=== PATIENT | male | born 1970 | race Caucasian/White ===

== ENCOUNTER 2018-07-09 03:32 | Inpatient (IN) ==
[2018-07-09] MEDS ORDERED: Ipratropium/Albuterol Neb 3 ML IH ONE (03:46)
[2018-07-09] MEDS ORDERED: methylPREDNISolone 125 MG/2 ML VIAL IVP ONE (03:46)
--- NOTE | 2018-07-09 03:53 | Emergency Department Note ---
Disposition Clinical Impression: Acute exacerbation of chronic obstructive airways disease Disposition: Admitted As Inpatient Condition: Fair Time of Disposition: 05:29 General Adult HPI - General Chief complaint: ED Shortness of Breath/Dyspnea Stated complaint: crissy Time Seen by Provider: 07/09/18 03:35 Source: patient Mode of arrival: EMS Limitations: no limitations Nursing Notes Reviewed: Yes Vital Signs Reviewed: Yes - History of Present Illness HPI Narrative: Patient is a 47-year-old male presenting with difficulty breathing and progressive shortness of breath. Past medical history significant for COPD. Patient states that he began to have progressive shortness of breath and dyspnea about 10 days ago with associated chronic cough and production of sputum. Patient states that he was seen on 06/30/2018 and was diagnosed with upper respiratory infection, symptoms do not improve and was seen on 07/03/2018, patient was discharged on Z-Bert and prednisone 40 mg 10 days. Patient states that this time his symptoms have gone unchanged with increasing dyspnea and difficulty breathing. Patient continues to have cough which is unchanged and sputum production from his chronic cough. He states he has subjective fever earlier this morning, did not take his temperature. He denies chills or recent illness. He states he has been taking his medicine as prescribed. Patient denies chest pain, palpitations, numbness, weakness or sensation changes. Patient states that this is very similar to when he has COPD exacerbation. Pain Scale: 0 - Related Data Home Medications Medication Instructions Recorded Confirmed Ibuprofen 1 PO PRN PRN 10/12/17 Albuterol Inhaler 06/30/18 Albuterol Neb 2 IH PRN PRN 06/30/18 Previous Rx's Medication Instructions Recorded Albuterol Sulfate [Albuterol 2 puff IH Q6H #1 puff 07/01/18 Inhaler] Azithromycin [Zithromax] 500 mg PO NOW #6 tablet 07/01/18 Ipratropium/Albuterol Sulfate 4 gm IH Q6H #1 mist.inhal 07/01/18 [Combivent Respimat Inhal [place]] PredniSONE [Deltasone] 40 mg PO DAILY #10 tablet 07/01/18 Salmeterol Xinafoate [Serevent 50 mcg IH DAILY #30 blst.w.dev 07/01/18 Diskus] Allergies Allergy/AdvReac Type Severity Reaction Status Date / Time No Known Allergies Allergy Verified 08/26/18 11:18 All systems ED: reviewed and negative except as stated. Review of Systems: As Per HPI Constitutional: Denies: fever, chills ENT ED: Denies: congestion Cardiovascular: Reports: dyspnea on exertion. Denies: chest pain, palpitations , edema, syncope Respiratory: Reports: cough, dyspnea, wheezes, sputum production. Denies: hemoptysis Gastrointestinal: Denies: abdominal pain, nausea, vomiting, diarrhea, constipation Genitourinary: Denies: urgency, dysuria Integumentary: Denies: rash Neurological: Denies: headache, weakness, numbness, paresthesias, confusion Endocrine: Denies: fatigue Past Medical History - Past Medical History Medical history: Reports: arthritis, COPD Surgical history: Reports: non-contributory Psychiatric history: Reports: no psych history - Social History Smoking Status: Current every day smoker Smokeless Tobacco Status: No Alcohol use: Reports: none Drug use: Reports: none Physical Exam - General Limitations: no limitations General appearance: alert, in no apparent distress - Head Head exam: atraumatic, normocephalic - Eye Eye exam: Present: normal appearance - ENT ENT exam: normal exam - Neck Neck exam: Present: normal inspection - Chest Chest inspection: Present: normal inspection, symmetric chest wall rise. Absent : tenderness - Respiratory Respiratory exam: Present: wheezes (Scattered throughout greatest at the bases bilaterally). Absent: respiratory distress, accessory muscle use - Cardiovascular Cardiovascular exam: Present: regular rate, normal rhythm - Abdominal Exam Abdominal exam: Present: soft, Non-Tender. Absent: tenderness, distention, guarding, rebound, rigidity - Extremities Exam Extremities exam: Present: normal inspection, normal capillary refill. Absent: pedal edema, calf tenderness - Expanded Lower Extremity Exam Neurovascular/Tendon exam: Present: normal capillary refill. Absent: pulse deficit, motor deficit, sensory deficit - Neurological Exam Neurological exam: Present: alert, oriented X3 - Psychiatric Psychiatric exam: Present: normal affect, normal mood - Skin Skin exam: Present: warm, dry, intact. Absent: diaphoresis Course Course Narrative: We will order CBC, BMP, BNP, troponin and EKG and chest x-ray. We will also give DuoNeb 3 and IV steroid. Vital Signs Temperature 97.8 F 07/09/18 03:35 Pulse Rate 104 07/09/18 03:35 Respiratory Rate 20 09/03/18 03:35 Blood Pressure 163/106 07/09/18 03:35 O2 Sat by Pulse Oximetry 93 07/09/18 03:35 Temperature 97.8 F 07/09/18 03:35 Pulse Rate 103 07/09/18 05:11 Respiratory Rate 17 07/09/18 05:52 Blood Pressure 130/96 07/09/18 05:52 O2 Sat by Pulse Oximetry 96 07/09/18 05:32 Oxygen Delivery Oxygen Delivery Nasal Cannula Medical Decision Making - [facility] Narrative Medical decision making narrative: Patient is a 47-year-old male presenting with increased difficulty breathing and dyspnea. Patient has a past medical significant for COPD. Patient was examined and clearly has increased work of breathing, pulse oxygenation is at 93 % on room air, wall in the room is on 2 L nasal cannula it is up at 96% at bedside. Initially, patient has many diffuse wheezes throughout, patient was given DuoNeb nebs 3 and upon reevaluation, patient's wheezes are slightly decreased overall. I did remove oxygen nasal cannula oxygen saturation dropped to 92%, will walk patient and assess further. Laboratory workup reveals leukocytosis, mostly secondary to recent steroid use. BNP and troponin are negative. EKG shows sinus tachycardia with ST elevation in V2 and V3, most suggestive of early re-pole pattern. No acute ischemic changes are noted. Chest x-ray is negative for cardio or pulmonary process. At this point in time , had discussion with patient regarding admission for further observation and treatment, recommended this point in time and patient agrees with disposition for admission for acute exacerbation of COPD. Accepted by Hospitalist, Dr. Bennett at [id number]. - Medical Records Medical records reviewed: Yes I reviewed the patient's medical records. - Lab Data Lab results reviewed: Yes I reviewed the patient's lab results. Result diagrams: 07/09/18 03:45 07/09/18 03:45 Lab Results 07/09/18 07/09/18 07/09/18 Range/Units 03:45 03:45 03:45 WBC 26.2 H (4.3-11.1) K/mcL RBC 5.28 (4.19-5.50) M/mcL Hgb 15.6 (12.9-16.9) g/dL Hct 47.1 (37.5-50.1) % MCV 89.2 (83.0-100.0) fL MCH 29.5 (28.0-33.3) pg MCHC 33.1 (31.6-35.5) g/dL RDW 13.4 (11.5-14.5) % Plt Count 385 (140-400) K/mcL MPV 9.7 (9.4-12.4) fL Seg Neutrophils % 46.0 % Lymphocytes % 20.0 % Monocytes % 4.0 % Eosinophils % 30.0 % Neutrophils # 12.1 H (1.6-8.9) K/mcL Lymphocytes # 5.2 H (0.6-4.6) K/mcL Monocytes # 1.1 (0.0-1.3) K/mcL Eosinophils # 7.9 H (0.0-0.6) K/mcL Platelet Estimate Normal (Normal) Sodium 138 (136-145) mEq/L Potassium 4.1 (3.5-5.1) mEq/L Chloride 103 (98-107) mEq/L Carbon Dioxide 29 (23-29) mEq/L BUN 11 (6-20) mg/dL Creatinine 0.63 L (0.70-1.30) mg/dL Est GFR ( Amer) > 60 (> 60) Est GFR (Non-Af Amer) > 60 (> 60) BUN/Creatinine Ratio 17 (6-26) Glucose 109 H (70-105) mg/dL Calculated Osmolality 286 (280-300) Calcium 9.5 (8.6-10.3) mg/dL Troponin I < 0.03 (< 0.04) ng/mL B-Natriuretic Peptide 12 (Less than 100) pg/mL - Radiology Data Radiology results reviewed: Yes I reviewed the patient's radiology results. Chest X-Ray 07/09/18 03:46 IMPRESSION: No acute disease. D/ / Deni Wayne MD / Deni Wayne MD Interpreting Provider: Deni Wayne MD - EKG Data EKG #1 EKG attestation: Yes I reviewed and interpreted this EKG. EKG results narrative: EKG performed at 0343 with a jugular rate of 100, regular rhythm, normal axis, no hypertrophy in the left ventricle, possible right atrial atrial enlargement, slight ST elevation in V2 and V3, most likely due to referral early re-pole, no ischemic ischemic changes are noted When compared to previous EKG there are: previous EKG unavailable
[2018-07-09 03:59] LABS: Mean Platelet Volume 9.7 fL (9.4-12.4)
[2018-07-09 04:01] LABS: Hematocrit 47.1 % (37.5-50.1); Hemoglobin 15.6 g/dL (12.9-16.9); Mean Corpuscular HGB Conc 33.1 g/dL (31.6-35.5); Mean Corpuscular Hemoglobin 29.5 pg (28.0-33.3); Mean Corpuscular Volume 89.2 fL (83.0-100.0); Platelet Count 385 K/mcL (140-400); Red Blood Count 5.28 M/mcL (4.19-5.50); Red Cell Distribution Width 13.4 % (11.5-14.5)
[2018-07-09 04:27] LABS: BUN/Creatinine Ratio 17 (6-26); Blood Urea Nitrogen 11 mg/dL (6-20); Calcium 9.5 mg/dL (8.6-10.3); Carbon Dioxide 29 mEq/L (23-29); Chloride 103 mEq/L (98-107); Glucose 109 mg/dL (70-105); Osmolality,Calculated 286 (280-300); Potassium 4.1 mEq/L (3.5-5.1); Sodium 138 mEq/L (136-145); Troponin I < 0.03 ng/mL (< 0.04); eGFR For Non-African Americans > 60 (> 60)
[2018-07-09 04:33] LABS: Eosinophils # 7.9 K/mcL (0.0-0.6); Lymphocytes # 5.2 K/mcL (0.6-4.6); Monocytes # 1.1 K/mcL (0.0-1.3); Neutrophils # 12.1 K/mcL (1.6-8.9)
[2018-07-09 04:34] LABS: Platelet Estimate Normal (Normal)
[2018-07-09] MEDS ORDERED: Albuterol 2.5 MG/3 ML NEBULIZER IH ONE (05:15)
--- NOTE | 2018-07-09 06:08 | Emergency Department Note ---
Disposition Clinical Impression: Acute exacerbation of chronic obstructive airways disease Disposition: Admitted As Inpatient Condition: Fair General Adult HPI - General Chief complaint: ED Shortness of Breath/Dyspnea Stated complaint: crissy Time Seen by Provider: 07/09/18 03:35 Source: patient Mode of arrival: EMS Limitations: no limitations Nursing Notes Reviewed: Yes Vital Signs Reviewed: Yes - History of Present Illness Pain Scale: 0 - Related Data Home Medications Medication Instructions Recorded Confirmed Ibuprofen 1 PO PRN PRN 10/12/17 Albuterol Inhaler 06/30/18 Albuterol Neb 2 IH PRN PRN 06/30/18 Previous Rx's Medication Instructions Recorded Albuterol Sulfate [Albuterol 2 puff IH Q6H #1 puff 07/01/18 Inhaler] Azithromycin [Zithromax] 500 mg PO NOW #6 tablet 07/01/18 Ipratropium/Albuterol Sulfate 4 gm IH Q6H #1 mist.inhal 07/01/18 [Combivent Respimat Inhal [place]] PredniSONE [Deltasone] 40 mg PO DAILY #10 tablet 07/01/18 Salmeterol Xinafoate [Serevent 50 mcg IH DAILY #30 blst.w.dev 07/01/18 Diskus] Allergies Allergy/AdvReac Type Severity Reaction Status Date / Time No Known Allergies Allergy Verified 07/01/18 11:18 Constitutional: Denies: fever, chills ENT ED: Denies: congestion Cardiovascular: Reports: dyspnea on exertion. Denies: chest pain, palpitations , edema, syncope Respiratory: Reports: cough, dyspnea, wheezes, sputum production. Denies: hemoptysis Gastrointestinal: Denies: abdominal pain, nausea, vomiting, diarrhea, constipation Genitourinary: Denies: urgency, dysuria Integumentary: Denies: rash Neurological: Denies: headache, weakness, numbness, paresthesias, confusion Endocrine: Denies: fatigue Past Medical History - Past Medical History Medical history: Reports: arthritis, COPD Surgical history: Reports: non-contributory Psychiatric history: Reports: no psych history - Social History Smoking Status: Current every day smoker Smokeless Tobacco Status: No Alcohol use: Reports: none Drug use: Reports: none Physical Exam - General Limitations: no limitations General appearance: alert, in no apparent distress Course Vital Signs Temperature 97.8 F 07/09/18 03:35 Pulse Rate 104 07/09/18 03:35 Respiratory Rate 20 07/09/18 03:35 Blood Pressure 163/106 07/09/18 03:35 O2 Sat by Pulse Oximetry 93 07/09/18 03:35 Temperature 97.8 F 07/09/18 03:35 Pulse Rate 103 07/09/18 05:11 Respiratory Rate 18 07/09/18 05:32 Blood Pressure 158/100 07/09/18 05:11 O2 Sat by Pulse Oximetry 96 07/09/18 05:32 Oxygen Delivery Oxygen Delivery Room Air Medical Decision Making - Medical Records Medical records reviewed: Yes I reviewed the patient's medical records. - Lab Data Lab results reviewed: Yes I reviewed the patient's lab results. Result diagrams: 07/09/18 03:45 07/09/18 03:45 Lab Results 07/09/18 07/09/18 07/09/18 Range/Units 03:45 03:45 03:45 WBC 26.2 H (4.3-11.1) K/mcL RBC 5.28 (4.19-5.50) M/mcL Hgb 15.6 (12.9-16.9) g/dL Hct 47.1 (37.5-50.1) % MCV 89.2 (83.0-100.0) fL MCH 29.5 (28.0-33.3) pg MCHC 33.1 (31.6-35.5) g/dL RDW 13.4 (11.5-14.5) % Plt Count 385 (140-400) K/mcL MPV 9.7 (9.4-12.4) fL Seg Neutrophils % 46.0 % Lymphocytes % 20.0 % Monocytes % 4.0 % Eosinophils % 30.0 % Neutrophils # 12.1 H (1.6-8.9) K/mcL Lymphocytes # 5.2 H (0.6-4.6) K/mcL Monocytes # 1.1 (0.0-1.3) K/mcL Eosinophils # 7.9 H (0.0-0.6) K/mcL Platelet Estimate Normal (Normal) Sodium 138 (136-145) mEq/L Potassium 4.1 (3.5-5.1) mEq/L Chloride 103 (98-107) mEq/L Carbon Dioxide 29 (23-29) mEq/L BUN 11 (6-20) mg/dL Creatinine 0.63 L (0.70-1.30) mg/dL Est GFR ( Amer) > 60 (> 60) Est GFR (Non-Af Amer) > 60 (> 60) BUN/Creatinine Ratio 17 (6-26) Glucose 109 H (70-105) mg/dL Calculated Osmolality 286 (280-300) Calcium 9.5 (8.6-10.3) mg/dL Troponin I < 0.03 (< 0.04) ng/mL B-Natriuretic Peptide 12 (Less than 100) pg/mL - Radiology Data Radiology results reviewed: Yes I reviewed the patient's radiology results. Chest X-Ray 07/09/18 03:46 IMPRESSION: No acute disease. D/ / Deni Wayne MD / Deni Wayne MD Interpreting Provider: Deni Wanye MD - EKG Data EKG #1 EKG attestation: Yes I reviewed and interpreted this EKG. EKG results narrative: EKG shows a normal sinus rhythm with ventricular rate of 100. Mild scattered ST segment elevations, probable early repolarization. Attestation Statement - Attestation Attestation: I, Long Phan MD, personally evaluated this patient and discussed their management with the resident physician. I reviewed the resident's note and agree with the documented findings, medical decision making, and plan of care. 47-year-old male with history of COPD presents to the emergency department with a complaint of wheezing and shortness of breath. There has been a nonproductive cough. No definite fever. No chest pain. Symptoms started about 10 days ago. He was seen at an urgent care about 8 or 9 days ago diagnosed with URI. Symptoms did not improve and he was seen at the [place] emergency department about 5 or 6 days ago. He was treated with Z-Bert and steroids. He returns to the emergency department tonight complaining of persistent symptoms and not really getting any better. She does have home oxygen which she only uses at night and is needed. He takes nebulizer treatments at home. He is a smoker and continues to smoke. On examination patient is a well-developed thin male in mild respiratory distress. He is alert and oriented 3. There is no cyanosis or diaphoresis. Breath sounds are decreased bilaterally with diffuse bilateral expiratory wheezes. Heart regular with a mild tachycardia. Abdomen soft and nontender with normal bowel sounds. No acute abnormality on chest x-ray. Labs reviewed. Patient received DuoNeb and Solu-Medrol here in the emergency department with some improvement but continues to have wheezing and shortness of breath. The hospitalist, Dr. Bennett, was consulted and accepted admission of the patient.
[2018-07-09] MEDS ORDERED: traMADol 50 MG TABLET PO PRN (07:50)
[2018-07-09] MEDS ORDERED: Acetaminophen 325 MG TABLET PO PRN (07:50)
[2018-07-09] MEDS ORDERED: Naloxone 0.4 MG/ML INJ IVP PRN (07:50)
[2018-07-09] MEDS ORDERED: *HR* OxyCODONE Immed Rel 5 MG TABLET PO PRN (07:50)
[2018-07-09] MEDS ORDERED: Albuterol 2.5 MG/3 ML NEBULIZER IH PRN (07:53)
--- NOTE | 2018-07-09 08:33 | Internal Med History&Physical ---
Date of Encounter: 07/09/18 Time of Encounter: 08:00 Internal Medicine - H&P: HPI Chief complaint: Shortness of breath Admitted From: Emergency Dept Plans for Post Hospital Care: Home History of present illness: Mr. James is a 47 year old male with hx of COPD presented to ED with persistent dyspnea. He was evaluated and subsequently admitted. Mr James stated symptoms began over a week ago. He had progressive dyspnea and was evaluated at urgent care. He was treated and continued to have symptoms and was seen again on 07/01. He was given azithromycin and prednisone then. 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 Cough has been nonproductive. Last night it worsened again so he came to ED. He denies any remitting or worsening factors except heat outside. He continues to smoke about 1/2 ppd. Denies exposure to gases or animals. No recent travel. Currently he is a little better since getting aerosols in ED. Past Med Surg Social Fam HX - Past Medical History Source: patient Medical history: arthritis, COPD Psychiatric history: no psych history - Past Surgical History Additional surgical history: knee arthroscopy - Social History Smoking Status: Current every day smoker Packs per day: 1 Smokeless Tobacco Status: No Alcohol use: none Drug use: none Current living situation: Home - Independent Activity Level: Independent ambulation Recent Out of Country Travel Within the Last 8 Weeks: No Exposure or Possible Exposure to Illness During Travel: No - Family History Mother Name: Daily James Age: 81 Hx Family Cardiac Disorders: Yes (HTN) Father Living Status: Still Living Hx Family Cardiac Disorders: Yes (HTN) Internal Medicine - H&P: Meds Ibuprofen 1 PO PRN PRN 10/12/17 [History] Albuterol Inhaler 06/30/18 [History] Albuterol Neb 2 IH PRN PRN 06/30/18 [History] Albuterol Sulfate [Albuterol Inhaler] 2 puff IH Q6H #1 puff 07/01/18 [Rx] Azithromycin [Zithromax] 500 mg PO NOW #6 tablet 07/01/18 [Rx] Ipratropium/Albuterol Sulfate [Combivent Respimat Inhal [place]] 4 gm IH Q6H #1 mist.inhal 07/01/18 [Rx] PredniSONE [Deltasone] 40 mg PO DAILY #10 tablet 07/01/18 [Rx] Salmeterol Xinafoate [Serevent [place]] 50 mcg IH DAILY #30 blst.w.dev 07/01/18 [ Rx] 3 Allergy/AdvReac Type Severity Reaction Status Date / Time No Known Allergies Allergy Verified 07/01/18 11:18 All Systems PM: A 10-system review of systems was performed and is negative for pertinent findings except as documented above in the HPI. - Constitutional Constitutional: fatigue, no night sweats, no weight loss - EENT Eyes: no change in vision, no loss of vision Ears: no decreased hearing Nose, mouth and throat: no dry mouth, no epistaxis, no facial pain, no sinus pain, no sinus pressure - Cardiovascular Cardiovascular ROS IM: dyspnea, no chest pain, no edema, no orthopnea, no palpitations, no paroxysmal nocturnal dyspnea - Respiratory Respiratory: cough, dyspnea, dyspnea on exertion, wheezing, chest congestion - Gastrointestinal Gastrointestinal: no abdominal pain, no constipation, no diarrhea, no heartburn , no melena, no vomiting - Genitourinary Genitourinary ROS male: no difficulty urinating, no dysuria, no nocturia - Musculoskeletal Musculoskeletal ROS IM: arthralgias, no muscle cramps, no myalgias - Integumentary Integumentary IM: no erythema, no rash - Neurological Neurological ROS: no abnormal gait, no dizziness, no numbness, no vertigo - Psychiatric Psychiatric: no anxiety, no depression - Endocrine Endocrine IM: no cold intolerance, no flushing, no heat intolerance - Hematologic/Lymphatic Hematologic/Lymphatic: no easy bleeding - Allergic/Immunologic Allergic/Immunologic: no tongue swelling, no throat swelling, no itchy eyes, no seasonal rhinorrhea, no uticaria, no GI upset with certain foods Additional comments: Says he took allergy shots as child but not in many years. - Constitutional Vitals: Temp Pulse Resp BP Pulse Ox 98.0 F 104 18 146/81 93 07/09/18 06:43 07/09/18 06:43 07/09/18 06:43 07/09/18 06:43 07/09/18 06:43 General appearance: Present: A&O X 3, pleasant, answers questions appropriately Exam: See below - Head Head exam: Present: atraumatic, normocephalic - Eye Eye exam: Present: EOMI, conjuntiva pink. Absent: scleral icterus Pupils: Present: PERRL - ENT ENT exam: Present: mucous membranes moist, normal exam, normal external ear exam Additional comments: No sinus tenderness. - Neck Neck exam general surgery: Present: normal inspection. Absent: lymphadenopathy , tenderness, thyromegaly - Respiratory Respiratory exam: Present: decreased breath sounds, prolonged expiratory phase, rhonchi. Absent: rales, respiratory distress, wheezes - Cardiovascular Cardiovascular exam: Present: RRR. Absent: systolic murmur - GI/Abdominal GI/Abdominal exam: Present: normal bowel sounds, soft. Absent: mass, tenderness - Extremities Exam Extremities exam: Present: full ROM, warm. Absent: tenderness - Neurological Exam Neurological exam: Present: alert, oriented X3, no focal deficits - Psychiatric Psychiatric exam: Present: normal affect, normal mood - Skin Skin exam: Present: dry, warm. Absent: rash Internal Med - H&P Results - Labs CBC & Chem 7: 07/09/18 03:45 07/09/18 03:45 - Assessment and plan (1) Acute and chronic respiratory failure ([id number]) Current Visit: Yes Status: Acute Assessment and plan: Pt has oxygen at home but does not use it during the day. He has increased use over the last week. Currently on 3 liters with oxygen saturation of 93%. Will wean as able. At this point he has failed full outpatient treatment. He is high risk for worsening clinical and respiratory status and has been placed in inpatient status. Qualifiers: Respiratory failure complication: hypoxia Qualified Code(s): J96.21 - Acute and chronic respiratory failure with hypoxia (2) Acute exacerbation of chronic obstructive airways disease Current Visit: Yes Status: Acute Assessment and plan: Pt with known COPD. Uses inhalers and aerosols at home. Recent treatment with steroids and abx and continues to have symptoms Admit to med tele. IV steroids, aerosols, abx, oxygen and mucolytic. (3) Eosinophilia Current Visit: Yes Status: Acute Assessment and plan: Last CBC on 07/01 had 1.7% eosinophils and today there are 30% eosinophils with WBC of 26.2 This is despite recent steroid use. Denies rash or other allergic symptoms. Denies sinus issues. Azithromycin has recently been taken but has had before and has no other allergic signs. Will recheck CBC today and total eosinophil count Need to consider this as part of his respiratory condition. May need allergy or pulm input if persists. (4) Leukocytosis Current Visit: Yes Status: Acute Assessment and plan: Most likely combination of steroid use and eosinophilia. Qualifiers: Leukocytosis type: unspecified Qualified Code(s): D72.829 - Elevated white blood cell count, unspecified (5) Tobacco abuse Current Visit: Yes Status: Chronic Assessment and plan: Cessation counselling Nicotine patch - Time Spent With Patient Total time spent is greater than 50% in coordination of care (as documented) at patient's floor/unit and/or counseling patient:
[2018-07-09] MEDS: Levofloxacin 500 MG/100 ML 500 MG/100 ML BAG IVPB SCH (08:57)
[2018-07-09] MEDS: Nicotine 14 MG PATCH.TD24 TD SCH (08:57)
[2018-07-09] MEDS: *HR* Heparin 5,000 UNIT/ML VIAL SQ SCH ×3 (08:58→23:02)
[2018-07-09] MEDS: Ipratropium/Albuterol Neb 3 ML IH SCH ×4 (10:55→22:23)
[2018-07-09] MEDS: MethylPREDNISolone 40 MG/ML VIAL IVP SCH ×3 (13:19→23:02)
[2018-07-09 13:38] LABS: Alanine Aminotransferase 11 Units/L (7-52); Albumin 4.5 g/dL (3.5-5.7); Albumin/Globulin Ratio 1.9 (1.1-2.2); Alkaline Phosphatase 88 Units/L (34-104); Aspartate Amino Transferase 15 Units/L (13-39); BUN/Creatinine Ratio 18 (6-26); Bilirubin,Total 0.6 mg/dL (0.3-1.0); Blood Urea Nitrogen 11 mg/dL (6-20); C-Reactive Protein < 5 mg/L (Less than 10); Calcium 9.6 mg/dL (8.6-10.3); Carbon Dioxide 27 mEq/L (23-29); Chloride 101 mEq/L (98-107); Globulin 2.4 g/dL (2.4-3.5); Glucose 180 mg/dL (70-105); Osmolality,Calculated 286 (280-300); Potassium 4.4 mEq/L (3.5-5.1); Sodium 136 mEq/L (136-145); Total Protein 6.9 g/dL (6.4-8.9); eGFR For Non-African Americans > 60 (> 60)
[2018-07-09 13:42] LABS: Basophils % 0.3 %; Eosinophils # 0.1 K/mcL (0.0-0.6); Eosinophils % 0.8 %; Hematocrit 48.3 % (37.5-50.1); Hemoglobin 16.1 g/dL (12.9-16.9); Immature Granulocytes % 1.1 % (0-4); Lymphocytes # 1.2 K/mcL (0.6-4.6); Lymphocytes % 10.1 %; Mean Corpuscular HGB Conc 33.3 g/dL (31.6-35.5); Mean Corpuscular Volume 89.9 fL (83.0-100.0); Mean Platelet Volume 10.2 fL (9.4-12.4); Monocytes % 0.3 %; Neutrophils # 10.5 K/mcL (1.6-8.9); Platelet Count 381 K/mcL (140-400); Red Blood Count 5.37 M/mcL (4.19-5.50); Red Cell Distribution Width 13.1 % (11.5-14.5); Segmented Neutrophils % 87.4 %
[2018-07-09] MEDS: Suboxone 8 Mg-2 Mg SL SL SCH (22:57)
[2018-07-10] MEDS: Ipratropium/Albuterol Neb 3 ML IH SCH ×4 (04:24→22:03)
[2018-07-10] MEDS: MethylPREDNISolone 40 MG/ML VIAL IVP SCH ×2 (05:45→13:25)
[2018-07-10 06:21] LABS: Basophils % 0.1 %
[2018-07-10 06:22] LABS: Hematocrit 46.1 % (37.5-50.1); Hemoglobin 15.8 g/dL (12.9-16.9); Immature Granulocytes % 1.2 % (0-4); Lymphocytes # 1.9 K/mcL (0.6-4.6); Lymphocytes % 6.7 %; Mean Corpuscular HGB Conc 34.3 g/dL (31.6-35.5); Mean Corpuscular Hemoglobin 30.7 pg (28.0-33.3); Mean Corpuscular Volume 89.7 fL (83.0-100.0); Mean Platelet Volume 9.9 fL (9.4-12.4); Monocytes # 0.6 K/mcL (0.0-1.3); Neutrophils # 25.1 K/mcL (1.6-8.9); Platelet Count 385 K/mcL (140-400); Red Blood Count 5.14 M/mcL (4.19-5.50); Red Cell Distribution Width 13.2 % (11.5-14.5)
[2018-07-10 06:41] LABS: BUN/Creatinine Ratio 25 (6-26); Blood Urea Nitrogen 14 mg/dL (6-20); Calcium 9.6 mg/dL (8.6-10.3); Carbon Dioxide 24 mEq/L (23-29); Chloride 101 mEq/L (98-107); Glucose 165 mg/dL (70-105); Osmolality,Calculated 284 (280-300); Sodium 135 mEq/L (136-145); eGFR For Non-African Americans > 60 (> 60)
[2018-07-10] MEDS: *HR* Heparin 5,000 UNIT/ML VIAL SQ SCH ×3 (08:59→23:37)
[2018-07-10] MEDS: Nicotine 14 MG PATCH.TD24 TD SCH (08:59)
[2018-07-10] MEDS: Levofloxacin 500 MG/100 ML 500 MG/100 ML BAG IVPB SCH (08:59)
[2018-07-10] MEDS: Suboxone 8 Mg-2 Mg SL SL SCH ×2 (09:02→22:33)
--- NOTE | 2018-07-10 14:13 | Internal Med Progress Note ---
<Hay Nugent - Last Filed: 07/10/18 15:43> Hospitalist Progress Note - Encounter Date of Encounter: 07/10/18 - Subjective Interval History: Mr. James, 47 y.o male with a history of COPD has been admitted to the floor because of shortness of breath. He endorses that he is on 2 L of home oxygen which he uses intermittently. He was recently seen in the ER a week ago for shortness of breath. During that visit, patient was discharged on Z-Bert and prednisone 20 mg by mouth twice a day. She endorses that he went to his mother' s place for the weekend and did not carry his home oxygen, felt really short of breath along with productive cough. She was was diagnosed with COPD in 2011 , his last PFTs were in 2011 as well. Patient does not regularly see any tap grinder . He currently takes Combivent, salmeterol BID. He's had multiple admissions to the hospital for pneumonia, the last one being 12/2017. Patient denies any recent travels, sick contacts, does not keep any farm animals or pets at home. 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 Patient is being treated with Levaquin and methylprednisolone for acute exacerbation of COPD and is on 2L O2 NC. - Exam Vitals: Temp Pulse Resp BP Pulse Ox 98.1 F 110 17 164/80 93 07/10/18 11:15 07/10/18 11:15 07/10/18 11:15 07/10/18 11:15 07/10/18 11:15 Exam: Gen: A 3 *3, no acute distress, good mentation Heart:RRR, no gallops, murmurs or rubs. Lungs: Bilateral respiratory wheezing, no rales, no diminished lung sounds. GI: Soft, nontender, nondistended, no hepatomegaly or splenomegaly MS: Range of motion, motor strength 5/5 in Upper and Lower Extremities - Assessment and Plan (1) Acute exacerbation of chronic obstructive airways disease Current Visit: Yes Status: Acute Assessment and Plan: - likely due to noncompliance on home oxygen and being an active smoker since he was 12. He was recently admitted to the [facility] because of same reason. - He has a history of COPD was diagnosed in 2011. His last PFTs were in 2011. Patient currently is on Combivent, salmeterol twice a day. Takes albuterol as rescue tender. - Currently on Levaquin day 2, solumedrol 40 mg, Duonebs PRN -Titrate oxygen for his PO2 > 88%, follow-up with tap grinder as an outpatient. (2) Acute and chronic respiratory failure with hypoxia Current Visit: Yes Status: Acute Assessment and Plan: - likely due to his Hx of COPD, and noncompliance on his home oxygen, patient has extensive history of 35 pack years smoking -Currently on day 2 of Levaquin, steroids, DuoNeb's PRN, on 2.O L NC -on Physical Exam patient appears to be in no acute distress, mild bilateral wheezing but no diminished lung sounds. - Titrate O2 for spO2 > 88%. (3) Leukocytosis Current Visit: Yes Status: Acute Assessment and Plan: - Likely due to his recent use of prednisone for the same condition. - WBC were 26.2 on admission. Patient has been afebrile throughout his hospital stay. - continue to monitor (4) DVT prophylaxis Current Visit: Yes Status: Acute DVT Prophylaxis: on Heparin SQ - Time Spent with Patient Total time spent is greater than 50% in coordination of care (as documented) at patient's floor/unit and/or counseling patient: Internal Medicine: Result - Labs CBC & Chem 7: 07/10/18 05:41 07/10/18 05:41 Labs: Short CBC 07/10/18 Range/Units 05:41 WBC 27.9 H D (4.3-11.1) K/mcL Hgb 15.8 (12.9-16.9) g/dL Hct 46.1 (37.5-50.1) % Plt Count 385 (140-400) K/mcL Neutrophils # 25.1 H (1.6-8.9) K/mcL BMP 07/10/18 05:41 Sodium 135 L Potassium 4.0 Chloride 101 Carbon Dioxide 24 BUN 14 Creatinine 0.56 L Glucose 165 H Calcium 9.6 - Impressions Impressions Chest CT 07/09/18 09:37 IMPRESSION: 1. Unchanged appearance of emphysematous changes within upper lobes, with numerous tiny ground-glass pulmonary nodules bilaterally. Differential consideration includes infectious or inflammatory processes, including hypersensitivity pneumonitis, or RB-ILD. Correlation with history and followup examination in 3 months is recommended. 2. Multiple nonenlarged mediastinal and upper abdominal lymph nodes, which are conspicuous in numbers. There are likely reactive. This can be re-evaluated on follow-up examination. 3. Approximately 2.3 cm isodense lobulated lesion arising from the left kidney. This is not completely characterized and is not consistent with simple cysts. Recommend nonemergent renal ultrasound to exclude a solid renal neoplasm. 4. Approximately 14 mm sclerotic lesion within T11 vertebral body. This can be correlated with nuclear medicine bone scan. 5. Unchanged T4 and T8 vertebral body compression fracture, likely secondary to osteopenia. D/ / 07/09/2018 13:44:03 Arben Gamble MD / [facility] Interpreting Provider: Arben Gamble MD Consult Discharge Plan - Plan Referrals: NONE,PCP [Primary Care Provider] - <Kirby Boateng - Last Filed: 07/10/18 17:09> Hospitalist Progress Note - Encounter Date of Encounter: 07/10/18 Time of Encounter: 17:06 - Exam Vitals: Temp Pulse Resp BP Pulse Ox 97.8 F 107 16 155/96 96 07/10/18 16:00 07/10/18 16:00 07/10/18 16:14 07/10/18 16:00 07/10/18 16:14 - Assessment and Plan (1) Acute exacerbation of chronic obstructive airways disease Current Visit: Yes Status: Acute (2) Acute and chronic respiratory failure ([id number]) Current Visit: Yes Status: Acute (3) Eosinophilia Current Visit: Yes Status: Acute (4) Leukocytosis Current Visit: Yes Status: Acute (5) Tobacco abuse Current Visit: Yes Status: Chronic - Time Spent with Patient Total time spent is greater than 50% in coordination of care (as documented) at patient's floor/unit and/or counseling patient: Internal Medicine: Result - Labs CBC & Chem 7: 07/10/18 05:41 07/10/18 05:41 Labs: Short CBC 07/10/18 Range/Units 05:41 WBC 27.9 H D (4.3-11.1) K/mcL Hgb 15.8 (12.9-16.9) g/dL Hct 46.1 (37.5-50.1) % Plt Count 385 (140-400) K/mcL Neutrophils # 25.1 H (1.6-8.9) K/mcL BMP 07/10/18 05:41 Sodium 135 L Potassium 4.0 Chloride 101 Carbon Dioxide 24 BUN 14 Creatinine 0.56 L Glucose 165 H Calcium 9.6 - Impressions Impressions Chest CT 07/09/18 09:37 IMPRESSION: 1. Unchanged appearance of emphysematous changes within upper lobes, with numerous tiny ground-glass pulmonary nodules bilaterally. Differential consideration includes infectious or inflammatory processes, including hypersensitivity pneumonitis, or RB-ILD. Correlation with history and followup examination in 3 months is recommended. 2. Multiple nonenlarged mediastinal and upper abdominal lymph nodes, which are conspicuous in numbers. There are likely reactive. This can be re-evaluated on follow-up examination. 3. Approximately 2.3 cm isodense lobulated lesion arising from the left kidney. This is not completely characterized and is not consistent with simple cysts. Recommend nonemergent renal ultrasound to exclude a solid renal neoplasm. 4. Approximately 14 mm sclerotic lesion within T11 vertebral body. This can be correlated with nuclear medicine bone scan. 5. Unchanged T4 and T8 vertebral body compression fracture, likely secondary to osteopenia. D/ / 07/09/2018 13:44:03 Arben Gamble MD / [facility] Interpreting Provider: Arben Gamble MD Retroperitoneum Ultrasound 07/10/18 14:00 IMPRESSION: 1. Redemonstration of a lesion in the left kidney in the superolateral aspect which measures 2.8 x 2.2 x 2.4 cm. Further evaluation with renal MRI is recommended to evaluate for possible neoplasm. 2. Redemonstration of a benign-looking right renal cyst. 3. No evidence of renal stones or obstructive uropathy. RECOMMENDATIONS: Renal MRI D/ / 07/10/2018 15:08:47 Maite Vinson MD / [facility] Interpreting Provider: Maite Vinson MD - Attending Attestation I saw evaluated and examined this patient and my medical decision-making was reviewed with the Resident Physician. I agree with the documented findings, disposition and treatment plan as described except to any changes set forth below. We independently had [id number] contact with the patient. Patient admitted for COPD exacerbation. He is feeling much better today. Continues to have some wheezing. He does use home oxygen. No chest pain. No fevers or chills. On examination, patient has bilateral wheezing. Heart sounds are normal. He is tachycardic. Abdomen is soft, nontender. No pedal edema. Acute COPD exacerbation: Continue bronchodilators. Switch to oral prednisone. Continue Levaquin to complete 5 day treatment course. Continue O2 supplementation. Essential hypertension: Patient's blood pressure has been persistently elevated since hospitalization. We will start him on lisinopril. <Hay Nugent - Last Filed: 07/10/18 15:43> (3) Leukocytosis Qualifiers: Leukocytosis type: unspecified Qualified Code(s): D72.829 - Elevated white blood cell count, unspecified <Kirby Boateng - Last Filed: 07/10/18 17:09> (2) Acute and chronic respiratory failure ([id number]) Qualifiers: Respiratory failure complication: hypoxia Qualified Code(s): J96.21 - Acute and chronic respiratory failure with hypoxia (4) Leukocytosis Qualifiers: Leukocytosis type: unspecified Qualified Code(s): D72.829 - Elevated white blood cell count, unspecified
[2018-07-10] MEDS: predniSONE 20 MG TABLET PO SCH (21:36)
[2018-07-11] MEDS: Ipratropium/Albuterol Neb 3 ML IH SCH ×3 (04:00→15:41)
[2018-07-11 04:46] LABS: Basophils % 0.1 %; Mean Platelet Volume 9.7 fL (9.4-12.4)
[2018-07-11 04:47] LABS: Hematocrit 43.6 % (37.5-50.1); Hemoglobin 14.3 g/dL (12.9-16.9); Immature Granulocytes % 1.2 % (0-4); Lymphocytes # 1.6 K/mcL (0.6-4.6); Lymphocytes % 5.3 %; Mean Corpuscular HGB Conc 32.8 g/dL (31.6-35.5); Mean Corpuscular Hemoglobin 29.3 pg (28.0-33.3); Mean Corpuscular Volume 89.3 fL (83.0-100.0); Monocytes # 0.7 K/mcL (0.0-1.3); Monocytes % 2.3 %; Platelet Count 391 K/mcL (140-400); Red Blood Count 4.88 M/mcL (4.19-5.50); Red Cell Distribution Width 13.6 % (11.5-14.5); Segmented Neutrophils % 91.1 %
[2018-07-11 05:00] LABS: Neutrophils # 27.5 K/mcL (1.6-8.9)
[2018-07-11 05:05] LABS: BUN/Creatinine Ratio 33 (6-26); Blood Urea Nitrogen 17 mg/dL (6-20); Calcium 9.4 mg/dL (8.6-10.3); Carbon Dioxide 27 mEq/L (23-29); Chloride 106 mEq/L (98-107); Glucose 137 mg/dL (70-105); Osmolality,Calculated 290 (280-300); Sodium 138 mEq/L (136-145); eGFR For Non-African Americans > 60 (> 60)
[2018-07-11 05:16] LABS: Platelet Estimate Normal (Normal)
--- NOTE | 2018-07-11 08:15 | Internal Med Progress Note ---
Hospitalist Progress Note - Encounter Date of Encounter: 07/11/18 - Subjective Interval History: Mr. James, 47 y.o male with a history of COPD has been admitted to the floor because of shortness of breath. He endorses that he is on 2 L of home oxygen which he uses intermittently. He was recently seen in the ER a week ago for shortness of breath. During that visit, patient was discharged on Z-Bert and prednisone 20 mg by mouth twice a day. She endorses that he went to his mother' s place for the weekend and did not carry his home oxygen, felt really short of breath along with productive cough. She was was diagnosed with COPD in 2011 , his last PFTs were in 2011 as well. Patient does not regularly see any landing support specialist . He currently takes Combivent, salmeterol BID. He's had multiple admissions to the hospital for pneumonia, the last one being 12/2017. Patient denies any recent travels, sick contacts, does not keep any farm animals or pets at home. 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 Patient is being treated with Levaquin and methylprednisolone for acute exacerbation of COPD and is on 2L O2 NC. - Exam Vitals: Temp Pulse Resp BP Pulse Ox 98.3 F 91 16 146/78 94 07/11/18 08:02 07/11/18 08:02 07/11/18 08:02 07/11/18 08:02 07/11/18 08:02 - Assessment and Plan (1) Acute exacerbation of chronic obstructive airways disease Current Visit: Yes Status: Acute (2) Acute and chronic respiratory failure with hypoxia Current Visit: Yes Status: Acute (3) Leukocytosis Current Visit: Yes Status: Acute (4) DVT prophylaxis Current Visit: Yes Status: Acute - Time Spent with Patient Total time spent is greater than 50% in coordination of care (as documented) at patient's floor/unit and/or counseling patient: Internal Medicine: Result - Labs CBC & Chem 7: 07/11/18 04:32 07/11/18 04:32 Labs: Short CBC 07/11/18 Range/Units 04:32 WBC 30.2 H* (4.3-11.1) K/mcL Hgb 14.3 D (12.9-16.9) g/dL Hct 43.6 (37.5-50.1) % Plt Count 391 (140-400) K/mcL Neutrophils # 27.5 H (1.6-8.9) K/mcL BMP 07/11/18 04:32 Sodium 138 Potassium 4.0 Chloride 106 Carbon Dioxide 27 BUN 17 Creatinine 0.52 L Glucose 137 H Calcium 9.4 - Impressions Impressions Chest CT 07/09/18 09:37 IMPRESSION: 1. Unchanged appearance of emphysematous changes within upper lobes, with numerous tiny ground-glass pulmonary nodules bilaterally. Differential consideration includes infectious or inflammatory processes, including hypersensitivity pneumonitis, or RB-ILD. Correlation with history and followup examination in 3 months is recommended. 2. Multiple nonenlarged mediastinal and upper abdominal lymph nodes, which are conspicuous in numbers. There are likely reactive. This can be re-evaluated on follow-up examination. 3. Approximately 2.3 cm isodense lobulated lesion arising from the left kidney. This is not completely characterized and is not consistent with simple cysts. Recommend nonemergent renal ultrasound to exclude a solid renal neoplasm. 4. Approximately 14 mm sclerotic lesion within T11 vertebral body. This can be correlated with nuclear medicine bone scan. 5. Unchanged T4 and T8 vertebral body compression fracture, likely secondary to osteopenia. D/ / 07/09/2018 13:44:03 [facility] Inter[facility] Provider: Arben Gamble MD Retroperitoneum Ultrasound 07/10/18 14:00 IMPRESSION: 1. Redemonstration of a lesion in the left kidney in the superolateral aspect which measures 2.8 x 2.2 x 2.4 cm. Further evaluation with renal MRI is recommended to evaluate for possible neoplasm. 2. Redemonstration of a benign-looking right renal cyst. 3. No evidence of renal stones or obstructive uropathy. RECOMMENDATIONS: Renal MRI D/ / 07/10/2018 15:08:47 Maite Vinson MD / [facility] Interpreting Provider: Maite Vinson MD Consult Discharge Plan - Plan Referrals: NONE,PCP [Primary Care Provider] - (3) Leukocytosis Qualifiers: Leukocytosis type: unspecified Qualified Code(s): D72.829 - Elevated white blood cell count, unspecified
[2018-07-11] MEDS: Nicotine 14 MG PATCH.TD24 TD SCH (08:43)
[2018-07-11] MEDS: predniSONE 20 MG TABLET PO SCH (08:43)
[2018-07-11] MEDS: Suboxone 8 Mg-2 Mg SL SL SCH (08:44)
[2018-07-11] MEDS: Levofloxacin 500 MG/100 ML 500 MG/100 ML BAG IVPB SCH (08:44)
[2018-07-11] MEDS: *HR* Heparin 5,000 UNIT/ML VIAL SQ SCH ×2 (08:56→17:14)
[2018-07-11 15:56] VITALS: BP 146/81
--- NOTE | 2018-07-11 16:01 | Oncology Inp Consult Note ---
Date of Encounter: 07/11/18 Time of Encounter: 15:54 Assessment and Plan (1) Left kidney mass Status: Acute Assessment and plan: 2.8 x 2.2 x 2.4 cm lesion in the left kidney. Agree with MRI. This can be done as an outpatient if exacerbation of COPD has been resolved. Urology consult this too could be done as an outpatient. (2) Lesion of vertebra Status: Acute Assessment and plan: Sclerotic lesion of T 11- Bone scan for further evaluation - Data of Consult Patient: new to practice Consult date: 07/11/18 Requesting Physician: Kirby Boateng MD Primary Care Provider: PCP NONE - Consult Narrative Reason for consult: L kideny lesion History of present illness: Mr. James is a 47 year old male was admitted through the emergency department secondary to increasing shortness of breath. He does have a history of COPD arthritis, and hypertension. He was evaluated approximately a week ago at the urgent care for shortness of breath at that time he was given Zithromax and prednisone. He states that initially he started to feel better but then the symptoms worsened and therefore he was seen in the emergency department. Prior to this event he was taking Ventolin, Serevent, and Combivent inhalers. He also has oxygen at home however he states that the only time he uses it is for his nebulizer treatments. He is a smoker, he is down to have a pack a day however he is smoke for 30+ years. He was found to have leukocytosis with a white count of 26,200 and eosinophils at 7.9%. His most recent CBC of 07/11/2018 indicates a white blood cell count of 30,000, eosinophils 0 and neutrophils 27.5. During this hospitalization he had a CT scan that indicated an unchanged appearance of the emphysematous changes within the upper lobes with numerous tiny groundglass pulmonary nodules bilaterally. It is recommended every a follow-up in 3 months. He also found multiple nonenlarged mediastinal and upper abdominal lymph nodes which were conspicuous and number. Likely reactive. Also a 2.3 cm isodense lobulated lesion arising from the left kidney not completely characterized and not consistent with a simple cyst. Also for routine millimeter sclerotic lesion in T11 vertebral body. An unchanged T4 and T8 vertebral body compression fractures likely secondary to osteopenia. On 07/09/2018 he had an ultrasound of the kidneys and bladder. This indicated a right kidney cyst that measured 4.7 x 3.3 x 3.5 cm. An iso-acholic lesion in the superior lateral pole of the left kidney measuring 2.8 x 2.2 x 2.4 cm. Neoplasm is suspected . Further evaluation with renal MRI was recommended. Kidney function is normal with a creatinine of 0.52. Past Med Surg Social Fam HX - Past Medical History Medical history: arthritis, COPD, hypertension Psychiatric history: no psych history - Past Surgical History Surgical History: non-contributory Additional surgical history: knee arthroscopy - Social History Smoking Status: Current every day smoker Packs per day: 1 Smokeless Tobacco Status: No Alcohol use: none Drug use: none - Family History Father Living Status: Still Living Hx Family Cardiac Disorders: Yes (HTN) Brother Name: Daily James Age: 81 Hx Family Cardiac Disorders: Yes (HTN) Hx Family Cancer: Yes (Brother approximately one year ago with lung cancer he was a smoker) Mother Name: Daily James Age: 81 Hx Family Cardiac Disorders: Yes (HTN) Medications and Allergies Salmeterol Xinafoate [Serevent Diskus] 50 mcg IH DAILY #30 blst.w.dev 07/01/18 [ Rx] Albuterol Sulfate [Ventolin Hfa] 2 puff IH Q4-6H PRN 07/09/18 [History] Buprenorphine HCl/Naloxone HCl [Suboxone 8 mg-2 mg Sl Film] 1 each SL BID [History] Ipratropium/Albuterol Neb [Duoneb] 3 ml IH Q4-6H PRN 07/09/18 [History] Ipratropium/Albuterol Sulfate [Combivent Respimat 20-100 Mcg] 2 puff IH Q6H 01/21 [History] 3 Allergy/AdvReac Type Severity Reaction Status Date / Time No Known Allergies Allergy Verified 07/09/18 10:25 Cardiovascular: Absent: chest pain, leg edema Respiratory: Present: dyspnea, dyspnea on exertion Genitourinary: other (Denies change in urinary function) Musculoskeletal: Present: other (Pain in his hands and some joints which she attributes to arthritis that is relieved by taking Motrin) Hematologic/Lymphatic: Absent: easy bleeding, easy bruising, lymphadenopathy Oncology - Exam - Constitutional Vitals: Temp Pulse Resp BP Pulse Ox 98.0 F 103 16 142/90 93 07/11/18 11:10 07/11/18 12:04 07/11/18 15:42 07/11/18 12:04 07/11/18 15:42 - Head Head exam: Present: normal inspection - Neck Neck exam: Present: normal inspection. Absent: lymphadenopathy - Respiratory Respiratory exam: Present: decreased breath sounds (all lung gomez) - Cardiovascular Cardiovascular exam: Present: RRR - GI/Abdominal GI/Abdominal exam: Present: soft - Extremities Exam Extremities exam: Present: normal inspection - Back Exam Back exam: Absent: CVA tenderness (L), CVA tenderness (R), tenderness, vertebral tenderness - Neurological Exam Neurological exam: Present: alert, normal gait, oriented X3 - Psychiatric Psychiatric exam: Present: normal affect - Skin Skin exam: Present: intact, normal color Oncology - Results Labs: 3 07/11/18 07/11/18 07/10/18 04:32 04:32 05:41 WBC 30.2 H* RBC 4.88 Hgb 14.3 D Hct 43.6 MCV 89.3 MCH 29.3 MCHC 32.8 RDW 13.6 Plt Count 391 MPV 9.7 Immature Gran % 1.2 Seg Neutrophils % 91.1 Lymphocytes % 5.3 Monocytes % 2.3 Eosinophils % 0.0 Basophils % 0.1 Neutrophils # 27.5 H Lymphocytes # 1.6 Monocytes # 0.7 Eosinophils # 0.0 Basophils # 0.0 Platelet Estimate Normal ESR Sodium 138 135 L Potassium 4.0 4.0 Chloride 106 101 Carbon Dioxide 27 24 BUN 17 14 Creatinine 0.52 L 0.56 L Est GFR ( Amer) > 60 > 60 Est GFR (Non-Af Amer) > 60 > 60 BUN/Creatinine Ratio 33 H 25 Glucose 137 H 165 H Calculated Osmolality 290 284 Calcium 9.4 9.6 Magnesium 2.0 Total Bilirubin AST ALT Alkaline Phosphatase C-Reactive Protein Serum Total Protein Albumin Globulin Albumin/Globulin Ratio 3 07/10/18 07/09/18 07/09/18 05:41 13:07 13:07 WBC 27.9 H D 12.0 H D RBC 5.14 5.37 Hgb 15.8 16.1 Hct 46.1 48.3 MCV 89.7 89.9 MCH 30.7 30.0 MCHC 34.3 33.3 RDW 13.2 13.1 Plt Count 385 381 MPV 9.9 10.2 Immature Gran % 1.2 1.1 Seg Neutrophils % 90.0 87.4 Lymphocytes % 6.7 10.1 Monocytes % 2.0 0.3 Eosinophils % 0.0 0.8 Basophils % 0.1 0.3 Neutrophils # 25.1 H 10.5 H Lymphocytes # 1.9 1.2 Monocytes # 0.6 0.0 Eosinophils # 0.0 0.1 Basophils # 0.0 0.0 Platelet Estimate ESR Sodium 136 Potassium 4.4 Chloride 101 Carbon Dioxide 27 BUN 11 Creatinine 0.61 L Est GFR ( Amer) > 60 Est GFR (Non-Af Amer) > 60 BUN/Creatinine Ratio 18 Glucose 180 H Calculated Osmolality 286 Calcium 9.6 Magnesium Total Bilirubin 0.6 AST 15 ALT 11 Alkaline Phosphatase 88 C-Reactive Protein < 5 Serum Total Protein 6.9 Albumin 4.5 Globulin 2.4 Albumin/Globulin Ratio 1.9 3 07/09/18 13:07 WBC RBC Hgb Hct MCV MCH MCHC RDW Plt Count MPV Immature Gran % Seg Neutrophils % Lymphocytes % Monocytes % Eosinophils % Basophils % Neutrophils # Lymphocytes # Monocytes # Eosinophils # Basophils # Platelet Estimate ESR 5 Sodium Potassium Chloride Carbon Dioxide BUN Creatinine Est GFR ( Amer) Est GFR (Non-Af Amer) BUN/Creatinine Ratio Glucose Calculated Osmolality Calcium Magnesium Total Bilirubin AST ALT Alkaline Phosphatase C-Reactive Protein Serum Total Protein Albumin Globulin Albumin/Globulin Ratio Consult Discharge Plan - Plan Referrals: NONE,PCP [Primary Care Provider] -
--- NOTE | 2018-07-11 16:53 | Discharge Summary ---
<Kirby Boateng - Last Filed: 07/11/18 17:58> Date of Encounter: 07/11/18 Time of Encounter: 17:56 - Discharge Diagnosis (1) Acute exacerbation of chronic obstructive airways disease Priority: Primary Status: Acute (2) Acute and chronic respiratory failure ([id number]) Priority: Secondary Status: Acute Qualifiers: Respiratory failure complication: hypoxia Qualified Code(s): J96.21 - Acute and chronic respiratory failure with hypoxia (3) Eosinophilia Priority: Secondary Status: Resolved (4) Leukocytosis Priority: Secondary Status: Acute Qualifiers: Leukocytosis type: unspecified Qualified Code(s): D72.829 - Elevated white blood cell count, unspecified (5) Tobacco abuse Priority: Secondary Status: Chronic Hospital course: Mr. James is a 47 year old male - Time Spent with Patient Total time spent providing and/or coordinating discharge services: Greater than 30 minutes (32 min) - Discharge Medications Prescriptions: Levofloxacin [Levaquin] 500 mg PO DAILY #4 tablet predniSONE [PredniSONE] See Taper PO TAPER #30 tablet Home Medications: Salmeterol Xinafoate [Serevent Diskus] 50 mcg IH DAILY #30 blst.w.dev 07/01/18 [ Rx] Albuterol Sulfate [Ventolin Hfa] 2 puff IH Q4-6H PRN 07/09/18 [History] Buprenorphine HCl/Naloxone HCl [Suboxone 8 mg-2 mg Sl Film] 1 each SL BID [History] Ipratropium/Albuterol Neb [Duoneb] 3 ml IH Q4-6H PRN 07/09/18 [History] Ipratropium/Albuterol Sulfate [Combivent Respimat 20-100 Mcg] 2 puff IH Q6H 01/21 [History] Levofloxacin [Levaquin] 500 mg PO DAILY #4 tablet 07/11/18 [Rx] predniSONE [PredniSONE] See Taper PO TAPER #30 tablet 07/11/18 [Rx] Allergies/Adverse Reactions: 3 Allergy/AdvReac Type Severity Reaction Status Date / Time No Known Allergies Allergy Verified 07/09/18 10:25 Date of admission: 07/09/18 07:56 Primary care physician: PCP NONE Consults: 07/11/18 12:48 Consult to Oncology [CONS] Routine Consulting Provider: [facility] Reason for Consult: sclerotic lesion T11 and kidney Call Completed: Yes Discharging clinician: Kirby Boateng Anticipated date of discharge: 07/11/18 - Constitutional Vitals: Temp Pulse Resp BP Pulse Ox 97.9 F 98 16 146/81 96 07/11/18 15:55 07/11/18 15:55 07/11/18 15:55 07/11/18 15:55 07/11/18 15:55 Exam: General: Patient is alert, no acute distress, oriented x 3 Respiratory: Good respiratory effort. Bilateral wheezing Cardiovascular: Regular rate and rhythm. s1 and s2 normal No clicks, rubs, gallops, or murmurs. No pedal edema Abdomen: Abdomen is soft, nontender. Bowel sounds are present Musculoskeletal: Spontaneously moving all extremities Skin: warm, dry, intact. Neuro: Alert oriented x 3 normal cranial nerves, no focal deficits - Patient Status Disposition: Home, Self-Care Condition: Fair Functional capacity at discharge: independent ambulation Overall status at discharge: patient is progressing back to baseline - Ambulatory Orders Ambulatory Orders: MR abdomen wo/w con [MR] Time Frame: 3 Days, Facility: [facility], Location: Radiology - Discharge Instructions Instructions: Prednisone (By mouth), Chronic Obstructive Pulmonary Disease (DC) Follow Up With: NONE,PCP [Primary Care Provider] - Additional Instructions: Please call Residency Clinic to schedule appointment [phone] - Attending Attestation I saw evaluated and examined this patient and my medical decision-making was reviewed with the Resident Physician, Hay Nugent. I agree with the documented findings, disposition and treatment plan as described except to any changes set forth below. We independently had [id number] contact with the patient. Patient hospitalized with acute COPD exacerbation. Was treated with bronchodilators and steroids and antibiotics. He COPD symptoms have slowly improved and now patient feels close to his baseline. He will be discharged today on oral antibiotics and steroid taper. Patient was also found to have incidental left kidney mass concerning for malignancy. Oncology was consulted and recommended an adrenal MRI which will be done as outpatient. Patient will also follow up with urology for further management. <Hay Nugent - Last Filed: 07/11/18 19:34> - NOTES TO OUTPATIENT PROVIDER Notes to Outpatient Provider: -Follow up with urology. - MRI of the abdomen as an outpatient. - Follow up in the residency clinic post discharge Date of Encounter: 07/11/18 Time of Encounter: 09:00 - Discharge Diagnosis (1) Acute exacerbation of chronic obstructive airways disease Status: Acute (2) Acute and chronic respiratory failure with hypoxia Status: Acute (3) Leukocytosis Status: Acute Qualifiers: Leukocytosis type: unspecified Qualified Code(s): D72.829 - Elevated white blood cell count, unspecified (4) DVT prophylaxis Status: Acute Hospital course: Mr. James is a 47 year old male with a PMHx of COPD who was admitted to the floor because of shortness of breath. Patient was recently seen in the ER a few days ago for shortness of breath and was discharged on Z-Bert and prednisone 20 mg by mouth. Patient returned to the ER again this weekend with some shortness of breath, and productive cough. He was found to have an acute exacerbation of COPD . This episode of COPD was partly due to his noncompliance on the home oxygen. He was treated with Levaquin and solumedrol. During the course of hospital stay, patient denied any worsening chest pain, shortness of breath, palpitation , or worsening productive cough. He was initially on 2 L of oxygen but required minimal dependence on oxygen as of last night and this morning. She is being currently discharged on 50 mg prednisone taper. He was also found to have 2.3 cm isodense lobulated lesion in the left kidney, and a 14 mm sclerotic lesion within T11 vertebral as an incidental finding. Oncology was consulted, and as per their recommendation, patient has been given a prescription for a renal MRI and instruction to follow up with oncologist and the urologist as an outpatient. He does not have a PCP, therefore , patient has been guided to the residency clinic to establish a PCP for further management of his clinical condition. - Time Spent with Patient Total time spent providing and/or coordinating discharge services: Date of admission: 07/09/18 07:56 Primary care physician: PCP NONE Consults: 07/11/18 12:48 Consult to Oncology [CONS] Routine Consulting Provider: [facility] Reason for Consult: sclerotic lesion T11 and kidney Call Completed: Yes - Constitutional Vitals: Temp Pulse Resp BP Pulse Ox 97.9 F 98 16 146/81 96 07/11/18 15:55 07/11/18 15:55 07/11/18 15:55 07/11/18 15:55 07/11/18 15:55 General appearance: Present: A&O X 0, A&O X 3, pleasant, answers questions appropriately - Patient Status Overall status at discharge: patient is progressing back to baseline
--- NOTE | 2018-07-11 23:02 | Electrocardiograph Report ---
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
== END 2018-07-11 18:28 | disposition home or self-care (01) | DRG 140 ==
LOC: 2ANU 03:32 → EMEROOARM 03:32 → SUATTDRO 05:38 → 2ANU 06:05 → SUATTDRO 07:56
PROVIDERS: ADMIT Internal Medicine; ATTEND Internal Medicine

== ENCOUNTER 2022-04-15 04:44 | Inpatient (IN) ==
[2022-04-15] MEDS ORDERED: Ondansetron 4 MG/2 ML VIAL IVP PRN (07:20)
[2022-04-15] MEDS ORDERED: Melatonin 3 MG TABLET PO PRN (07:20)
[2022-04-15] MEDS ORDERED: Naloxone 0.4 MG/ML INJ IVP PRN (07:20)
[2022-04-15] MEDS: Ipratropium/Albuterol Neb 3 ML IH SCH ×4 (08:01→23:39)
[2022-04-15 08:13] LABS: Basophils % 0.1 %; Hematocrit 41.9 % (37.5-50.1); Hemoglobin 13.8 g/dL (12.9-16.9); Immature Granulocytes % 0.8 % (0-4); Lymphocytes # 0.5 K/mcL (0.6-4.6); Lymphocytes % 2.9 %; Mean Corpuscular HGB Conc 32.9 g/dL (31.6-35.5); Mean Corpuscular Hemoglobin 28.8 pg (28.0-33.3); Mean Corpuscular Volume 87.5 fL (83.0-100.0); Mean Platelet Volume 10.4 fL (9.4-12.4); Monocytes # 0.1 K/mcL (0.0-1.3); Monocytes % 0.6 %; Neutrophils # 17.7 K/mcL (1.6-8.9); Platelet Count 273 K/mcL (140-400); Red Blood Count 4.79 M/mcL (4.19-5.50); Red Cell Distribution Width 12.4 % (11.5-14.5); Segmented Neutrophils % 95.6 %; White Blood Count 18.5 K/mcL (4.3-11.1)
[2022-04-15 08:30] LABS: Alanine Aminotransferase 8 Units/L (7-52); Albumin/Globulin Ratio 1.7 (1.1-2.2); Alkaline Phosphatase 90 Units/L (34-104); Aspartate Amino Transferase 17 Units/L (13-39); BUN/Creatinine Ratio 25 (6-26); Bilirubin,Total 0.6 mg/dL (0.3-1.0); Blood Urea Nitrogen 16 mg/dL (6-20); Calcium 8.3 mg/dL (8.6-10.3); Carbon Dioxide 20 mEq/L (23-29); Chloride 105 mEq/L (98-107); Globulin 2.4 g/dL (2.4-3.5); Glucose 169 mg/dL (70-105); Osmolality,Calculated 285 (280-300); Potassium 3.9 mEq/L (3.5-5.1); Sodium 135 mEq/L (136-145); Total Protein 6.4 g/dL (6.4-8.9); eGFR For African Americans > 60 (> 60); eGFR For Non-African Americans > 60 (> 60)
[2022-04-15] MEDS ORDERED: cefTRIAXone 1,000 MG in 0.9 % Sodium Chloride 10 ML IVP SCH (09:00)
[2022-04-15] MEDS: Azithromycin 500 MG in 0.9 % Sodium Chloride 250 ML IVPB SCH (09:53)
[2022-04-15] MEDS: Budesonide/Formoterol 160/4.5 1 PUFF INH IH SCH ×2 (10:32→23:39)
[2022-04-15] MEDS: MethylPREDNISolone 40 MG/ML VIAL IVP SCH ×2 (13:03→17:21)
[2022-04-15] MEDS: *HR* Buprenorphine HCl 8 MG TAB.SUBL SL SCH (13:03)
[2022-04-15] MEDS ORDERED: Fluticasone Propionate Nasal 50 MCG/SPRAY BOTTLE NS PRN (14:34)
[2022-04-15] MEDS: DilTIAZem CD (24hr) 240 MG CAP.ER.24H PO SCH (16:16)
[2022-04-15] MEDS ORDERED: 0.9 % Sodium Chloride 1,000 ML ONE (17:15)
[2022-04-16] MEDS: MethylPREDNISolone 40 MG/ML VIAL IVP SCH ×3 (00:06→13:08)
[2022-04-16] MEDS: Ipratropium/Albuterol Neb 3 ML IH SCH ×4 (03:45→22:06)
[2022-04-16] MEDS: *HR* Enoxaparin 40 MG/0.4 ML SYRINGE SQ SCH (05:14)
[2022-04-16 05:33] LABS: Basophils % 0.1 %; Hematocrit 39.2 % (37.5-50.1); Immature Granulocytes % 0.6 % (0-4); Lymphocytes # 1.4 K/mcL (0.6-4.6); Lymphocytes % 6.1 %; Mean Corpuscular HGB Conc 33.2 g/dL (31.6-35.5); Mean Corpuscular Hemoglobin 29.5 pg (28.0-33.3); Mean Corpuscular Volume 88.9 fL (83.0-100.0); Mean Platelet Volume 10.2 fL (9.4-12.4); Monocytes # 0.3 K/mcL (0.0-1.3); Monocytes % 1.4 %; Neutrophils # 21.4 K/mcL (1.6-8.9); Platelet Count 274 K/mcL (140-400); Red Blood Count 4.41 M/mcL (4.19-5.50); Red Cell Distribution Width 12.5 % (11.5-14.5); Segmented Neutrophils % 91.8 %; White Blood Count 23.3 K/mcL (4.3-11.1)
[2022-04-16 05:54] LABS: Alanine Aminotransferase 11 Units/L (7-52); Albumin 3.7 g/dL (3.5-5.7); Albumin/Globulin Ratio 1.4 (1.1-2.2); Alkaline Phosphatase 76 Units/L (34-104); Aspartate Amino Transferase 15 Units/L (13-39); BUN/Creatinine Ratio 17 (6-26); Bilirubin,Total 0.5 mg/dL (0.3-1.0); Blood Urea Nitrogen 11 mg/dL (6-20); Calcium 8.9 mg/dL (8.6-10.3); Carbon Dioxide 23 mEq/L (23-29); Chloride 101 mEq/L (98-107); Globulin 2.7 g/dL (2.4-3.5); Glucose 133 mg/dL (70-105); Magnesium 1.9 mg/dL (1.6-2.6); Osmolality,Calculated 275 (280-300); Sodium 132 mEq/L (136-145); Total Protein 6.4 g/dL (6.4-8.9); eGFR For African Americans > 60 (> 60); eGFR For Non-African Americans > 60 (> 60)
[2022-04-16] MEDS: Azithromycin 500 MG in 0.9 % Sodium Chloride 250 ML IVPB SCH (08:09)
[2022-04-16] MEDS: *HR* Buprenorphine HCl 8 MG TAB.SUBL SL SCH (08:09)
[2022-04-16] MEDS: Furosemide 20 MG TABLET PO SCH (08:09)
[2022-04-16] MEDS: Metoprolol XL (24 HR) Succ 25 MG TAB.ER.24H PO SCH (08:09)
[2022-04-16] MEDS: Aspirin Enteric Coated 81 MG Tablet PO SCH (08:09)
[2022-04-16] MEDS: DilTIAZem CD (24hr) 240 MG CAP.ER.24H PO SCH (08:11)
[2022-04-16] MEDS: Budesonide/Formoterol 160/4.5 1 PUFF INH IH SCH ×2 (10:46→22:07)
[2022-04-16] MEDS ORDERED: *HR* Heparin 5,000 UNIT/ML VIAL SQ SCH (14:00)
[2022-04-17] MEDS: Ipratropium/Albuterol Neb 3 ML IH SCH ×2 (04:23→10:34)
[2022-04-17] MEDS: *HR* Enoxaparin 40 MG/0.4 ML SYRINGE SQ SCH (05:08)
[2022-04-17 05:47] LABS: Basophils % 0.1 %; Hematocrit 39.2 % (37.5-50.1); Lymphocytes # 1.7 K/mcL (0.6-4.6); Lymphocytes % 8.1 %; Mean Corpuscular HGB Conc 33.2 g/dL (31.6-35.5); Mean Corpuscular Hemoglobin 29.3 pg (28.0-33.3); Mean Corpuscular Volume 88.5 fL (83.0-100.0); Mean Platelet Volume 10.5 fL (9.4-12.4); Monocytes # 0.7 K/mcL (0.0-1.3); Monocytes % 3.1 %; Neutrophils # 18.9 K/mcL (1.6-8.9); Platelet Count 325 K/mcL (140-400); Red Blood Count 4.43 M/mcL (4.19-5.50); Segmented Neutrophils % 87.7 %; White Blood Count 21.5 K/mcL (4.3-11.1)
[2022-04-17 06:06] LABS: BUN/Creatinine Ratio 25 (6-26); Blood Urea Nitrogen 15 mg/dL (6-20); Calcium 9.3 mg/dL (8.6-10.3); Carbon Dioxide 29 mEq/L (23-29); Chloride 100 mEq/L (98-107); Glucose 120 mg/dL (70-105); Osmolality,Calculated 280 (280-300); Potassium 4.1 mEq/L (3.5-5.1); Sodium 134 mEq/L (136-145); eGFR For African Americans > 60 (> 60); eGFR For Non-African Americans > 60 (> 60)
[2022-04-17 07:12] VITALS: BP 107/74; PULSE 77; TEMP 98.6
[2022-04-17] MEDS: *HR* Buprenorphine HCl 8 MG TAB.SUBL SL SCH (08:12)
[2022-04-17] MEDS: Aspirin Enteric Coated 81 MG Tablet PO SCH (08:12)
[2022-04-17] MEDS: Azithromycin 500 MG in 0.9 % Sodium Chloride 250 ML IVPB SCH (08:13)
[2022-04-17] MEDS: Furosemide 20 MG TABLET PO SCH (08:13)
[2022-04-17] MEDS: Metoprolol XL (24 HR) Succ 25 MG TAB.ER.24H PO SCH (08:13)
[2022-04-17] MEDS: DilTIAZem CD (24hr) 240 MG CAP.ER.24H PO SCH (08:16)
[2022-04-17] MEDS ORDERED: predniSONE 20 MG TABLET PO SCH (09:00)
[2022-04-17] MEDS: Budesonide/Formoterol 160/4.5 1 PUFF INH IH SCH (10:34)
[2022-04-17 10:38] VITALS: O2SAT 99
== END 2022-04-17 12:30 | disposition home or self-care (01) | DRG 140 ==
LOC: 2NENU → SUATTDRO 06:29
PROVIDERS: ADMIT Hospitalist; ATTEND Internal Medicine